=== PATIENT | male | born 1960 | race Caucasian/White ===

== ENCOUNTER 2018-02-09 16:22 | Emergency (ER) | payer SELFPAY ==
[~2018-02-09] VITALS: Ht 162.6 cm; Wt 81.5 kg
[2018-02-09 17:44] LABS: INFLUENZA TYPE A NEGATIVE FOR TYPE A (NEGATIVE); INFLUENZA TYPE B NEGATIVE FOR TYPE B (NEGATIVE)
[2018-02-09] MEDS ORDERED: IBUPROFEN 800 MG TABLET PO ONE (17:45)
[2018-02-09] MEDS ORDERED: IPRATROPIUM BROMIDE 0.5 MG/2.5 ML NEB SOLUTION NEB ONE (17:45)
[2018-02-09] MEDS ORDERED: ALBUTEROL SULFATE 2.5 MG/0.5 ML NEB SOLUTION NEB ONE (17:45)
[2018-02-09 18:56] VITALS: BP 162/102
== END 2018-02-09 19:46 | disposition home or self-care (01) ==
LOC: EMS 16:23
DX: J20.9 Acute bronchitis, unspecified (principal); B34.9 Viral infection, unspecified; I10 Essential (primary) hypertension
CPT/HCPCS: 87804; 94640